=== PATIENT | female | born 1950 | race Two or more races ===

== ENCOUNTER 2024-04-01 20:20 | Emergency (ER) | payer OTHER ==
[~2024-04-01] VITALS: Ht 160 cm; Wt 73.1 kg
[2024-04-01 23:32] VITALS: TEMP 98.1
[2024-04-02] MEDS ORDERED: AUG875T PO (00:53)
[2024-04-02] MEDS: BACITRACIN TOP OINT 1 UD PKG TOP ONE (01:01)
[2024-04-02] MEDS: AMOXICILLIN/CLAVUL 875 MG TAB PO ONE (01:01)
[2024-04-02 01:15] VITALS: BP 180/91; PULSE 102; RESP 18; O2SAT 98
== END 2024-04-02 01:22 | disposition home or self-care (01) ==
LOC: ER 20:20
DX: S51.012A Laceration without foreign body of left elbow, initial encounter (principal); Z88.1 Allergy status to other antibiotic agents; W54.0XXA Bitten by dog, initial encounter; Y93.89 Activity, other specified; Y92.89 Other specified places as the place of occurrence of the external cause; Y99.8 Other external cause status
CPT/HCPCS: 12002; 70450; 72125; 73060; 73080; 73090